=== PATIENT | male | born 1965 | race Caucasian/White ===

== ENCOUNTER 2018-05-24 08:11 | Day surgery (SDC) | payer OTHER, SELFPAY ==
[2018-05-24] VITALS (13 sets, daily range): BP systolic 111–166; BP diastolic 69–99; PULSE 66–80; RESP 16–20; TEMP 36.6; O2SAT 92–96; BMI 34.2; BMI 32.5
--- NOTE | 2018-05-24 08:30 | IR_ITS ---
CARDIAC CATHETERIZATION DATE OF CATHETERIZATION:05/24/2018 10:39 AM PROCEDURES: 1. Left heart catheterization 2. Left ventriculogram 3. Selective coronary angiogram INDICATION FOR TEST: 1. Accelerated angina pectoris 2. Known coronary artery disease Patient presented to the emergency department with classic accelerated angina pectoris. History is negative therefore was discharged from the emergency department with plans to follow-up office. Once evaluated in the office he was describing classic accelerated angina pectoris and had established coronary artery disease. Because of this angiography was recommended Informed consent was obtained prior to the procedure. COMPLICATIONS: None ESTIMATED BLOOD LOSS: Less than 10 ml. TECHNIQUE: One percent lidocaine used to anesthetize the right anterior aspect of the wrist. The right radial artery was accessed via the Seldinger technique. A 6 [place] sheath was placed in the right radial artery. 2.5 mg of verapamil, 800 mcg of nitroglycerin, 1mg Lidocaine and 5000 U Heparin were given through the arterial sheath. The trap catheter was also used to perform left heart catheterization, left ventriculogram and selective coronary angiogram. At the end of the procedure the sheath was removed good hemostasis was achieved using Traclet band, patient was transferred to the postop holding area in stable condition . ANGIOGRAPHIC RESULTS: 1. The left main artery normal 2. The left anterior descending artery has proximal 10% stenoses and mid vessel 20% stenoses. The stent in the proximal to mid segment is widely patent free of in-stent restenosis with excellent proximal distal transitioning A large first diagonal artery has a proximal concentric 30% stenosis 3. The circumflex artery is a large dominant vessel with a 30% mid vessel stenosis and a 30% stenosis and a very large first obtuse marginal artery 4. The right coronary artery small nondominant normal 5. The [facility] ventriculogram reveals normal 65% 6. The left ventricular end-diastolic pressure 10 mm IMPRESSION: 1. Patent coronary arteries as described above 2. Normal ejection fraction 3. Normal left ventricular end-diastolic pressure PLAN: 1. Treatment of endothelial dysfunction 2. Addition of Ranexa plus isosorbide mononitrate 3. Risk factor modification
[2018-05-24 08:52] LABS: Basophils % 0.3 % (0.1-2.0); Eosinophils # 0.1 K/mm3 (0.0-0.4); Eosinophils % 0.9 % (0.1-12.0); Hematocrit 44.6 % (42.0-52.0); Hemoglobin 15.2 g/dL (14.1-18.0); Lymphocytes # 2.1 K/mm3 (0.7-4.5); Lymphocytes % 21.3 % (10-50); Mean Corpuscular Hemoglobin 29.8 pg (27.0-31.2); Mean Corpuscular Volume 87.6 fl (80-94); Monocytes # 0.5 K/mm3 (0.1-1.0); Monocytes % 4.5 % (1.7-9.3); Neutrophils # 7.3 K/mm3 (1.8-7.8); Neutrophils % 73.2 % (37.0-80.0); Platelet Count 216 K/mm3 (142-424); Red Blood Count 5.09 M/mm3 (4.60-6.20); Red Cell Distribution Width 12.2 % (11.5-17.5)
[2018-05-24 09:04] LABS: Blood Urea Nitrogen 20 mg/dL (7-18); Calcium 9.2 mg/dL (8.5-10.1); Carbon Dioxide 25 mmol/L (21.0-32.0); Chloride 103 mmol/L (98-107); Creatinine Clearance Estimated 111 mL/min (50-200); Creatinine,Serum 1.18 mg/dL (0.70-1.30); Estimated Glomerular Filt Rate 65 ml/min (>60); GFR (African American) 79 ML/MIN (>60); Glucose 92 mg/dL (74-106); Sodium 139 mmol/L (136-145)
== END 2018-05-24 14:05 | disposition home or self-care (01) ==
PROVIDERS: Visit Provider Internal Medicine
DX: I25.118 Atherosclerotic heart disease of native coronary artery with other forms of angina pectoris (principal); E78.4 Other hyperlipidemia; I11.0 Hypertensive heart disease with heart failure; R68.84 Jaw pain; I50.30 Unspecified diastolic (congestive) heart failure; I44.5 Left posterior fascicular block; E78.5 Hyperlipidemia, unspecified; Z88.8 Allergy status to other drugs, medicaments and biological substances; Z79.899 Other long term (current) drug therapy; Z79.82 Long term (current) use of aspirin
CPT/HCPCS: 80048; 85025; 93458; 99152; 99153; C1725; C1769; J1644; Q9967